=== PATIENT | female | born 1955 | race Caucasian/White ===

== ENCOUNTER 2017-05-08 08:44 | Outpatient (CLI) | payer OTHER ==
--- NOTE | 2017-05-15 14:40 | MMO ---
BILATERAL SCREENING MAMMOGRAMS: Date: 05/08/17 Comparison made to prior exams from 2007 and 2015. This patient's mammogram was interpreted with the assistance of computer-aided detection. FINDINGS: Scattered fibroglandular densities. Scattered benign calcifications. No mass or distortion. No suspic ious finding or interval change. Recommend one year follow-up. IMPRESSION: BIRADS 2: Benign Finding(s) POS: [facility]
== END 2017-05-08 08:45 | disposition home or self-care (01) ==
LOC: SCSMAMMO 08:44
PROVIDERS: ATTEND Family Medicine
DX: Z12.31 Encounter for screening mammogram for malignant neoplasm of breast (principal)
CPT/HCPCS: 77067

== ENCOUNTER 2017-07-02 07:25 | Outpatient (CLI) | payer OTHER | END 2017-07-02 07:26 | disposition home or self-care (01) | LOC: BICULT 07:25 | PROVIDERS: ATTEND Family Medicine | DX: R10.11 Right upper quadrant pain (principal); Z90.49 Acquired absence of other specified parts of digestive tract | CPT/HCPCS: 76700 ==

== ENCOUNTER 2017-11-23 09:17 | Outpatient (CLI) | payer OTHER | END 2017-11-23 09:18 | disposition home or self-care (01) | LOC: BICRAD 09:17 | PROVIDERS: ATTEND Internal Medicine Rheumatology | DX: M13.0 Polyarthritis, unspecified (principal); G56.02 Carpal tunnel syndrome, left upper limb; R53.81 Other malaise; R53.83 Other fatigue; M19.012 Primary osteoarthritis, left shoulder; M25.774 Osteophyte, right foot; Z72.0 Tobacco use | CPT/HCPCS: 71046; 72040 ==

== ENCOUNTER 2018-02-26 20:05 | Emergency (ER) | payer OTHER ==
--- NOTE | 2018-02-26 20:58 | RAD ---
PORTABLE CHEST 02/26/18 PROVIDED CLINICAL HISTORY: Cough. FINDINGS: Comparison 11/23/17. The cardiac and mediastinal silhouette is within normal limits. No focal consolidation, pleural fluid , or pneumothorax apparent. IMPRESSION: No evidence for an acute cardiopulmonary process. POS: [facility]
[2018-02-26] MEDS ORDERED: Azithromycin 250 MG TAB ONE (22:00)
== END 2018-02-26 22:10 | disposition home or self-care (01) ==
LOC: ERS 20:05
DX: J44.0 Chronic obstructive pulmonary disease with (acute) lower respiratory infection (principal); J44.1 Chronic obstructive pulmonary disease with (acute) exacerbation; E78.5 Hyperlipidemia, unspecified; I10 Essential (primary) hypertension; F17.210 Nicotine dependence, cigarettes, uncomplicated
CPT/HCPCS: 71045; 94640; J7620

== ENCOUNTER 2023-02-07 21:04 | Emergency (ER) | payer MEDICARE, OTHER ==
[2023-02-07] MEDS ORDERED: Ipratropium/Albuterol 3 ML NEB ONE (21:13)
[2023-02-07] MEDS ORDERED: methylPREDNISolone Sod Succ/PF 125 MG/2 ML VIAL ONE (21:22)
[2023-02-07 21:41] LABS: #Monocytes 0.6 thou/uL (0.11-0.59); #Neutrophils 5.1 thou/uL (1.40-6.50); %Basophils 0.2 % (0.0-1.0); %Eosinophils 0.1 % (0.0-10.0); %Lymphocytes 28.4 % (21.0-51.0); %Monocytes 7.8 % (0.0-10.0); %Neutrophils 63.1 % (42.0-75.0); Hematocrit 43.1 % (36.0-47.0); Hemoglobin 14.9 g/dL (12.0-16.0); Mean Corpuscular HGB CONC 34.6 g/dL (32.0-36.0); Mean Corpuscular Hemoglobin 34.1 pg (27.0-31.0); Mean Corpuscular Volume 98.6 fl (78.0-98.0); Mean Platelet Volume 9.4 fL (7.4-10.4); Platelet Count 197 10x3/uL (130-400); RBC Distribution Width 12.1 % (11.5-14.5); Red Blood Cell (RBC) Count 4.37 mill/uL (4.20-5.40); White Blood Cell (WBC) Count 8.1 10x3/uL (4.8-10.8)
[2023-02-07] MEDS ORDERED: Magnesium 2 GM/50 ML BAG (IN WATER) ONE (22:01)
[2023-02-07 22:03] LABS: ALT (SGPT) 18 U/L (8-55); AST (SGOT) 20 U/L (5-34); Albumin 4.6 g/dL (3.4-4.8); Alkaline Phosphatase 52 U/L (40-110); Anion Gap 18 mmol/L (10-20); BUN (Urea Nitrogen) 12 mg/dL (9.8-20.1); Bilirubin, Total 0.3 mg/dL (0.2-1.2); Calc. Creatinine Clearance 0 mL/min (70-130); Carbon Dioxide 20 mmol/L (23-31); Chloride 109 mmol/L (98-107); Estimated GFR 76; Globulin 2.7 g/dL (2.4-3.5); Glucose 99 mg/dL (80-115); Potassium 3.9 mmol/L (3.5-5.1); Protein, Total 7.3 g/dL (5.8-8.1); Sodium 143 mmol/L (136-145)
[2023-02-07] MEDS ORDERED: Ipratropium Bromide 2.5 ml Neb ONE (22:06)
[2023-02-07 22:07] LABS: Troponin I Less than 0.010 ng/mL (< 0.028)
[2023-02-07] MEDS ORDERED: Albuterol 2.5 MG (3 mL) NEB ONE (22:07)
[2023-02-07 23:17] LABS: BHCG - Serum Negative (NEGATIVE); Pregs Control Background? CLEAR/WHITE (CLR/WHITE); Pregs Control Bar Appear? YES (CONTROL BAR)
[2023-02-07 23:21] LABS: INR-International Normal Ratio 0.9; PTT 24.3 sec (22.9-36.1); Prothrombin Time 12.2 sec (12.0-14.7)
[2023-02-07 23:22] LABS: Lipase 30 U/L (8-78)
== END 2023-02-08 00:42 | disposition home or self-care (01) ==
LOC: ERS 21:04
DX: J44.1 Chronic obstructive pulmonary disease with (acute) exacerbation (principal); I10 Essential (primary) hypertension; F17.210 Nicotine dependence, cigarettes, uncomplicated; Z79.899 Other long term (current) drug therapy
CPT/HCPCS: 71045; 80053; 83690; 83735; 84484; 84703; 85025; 85610; 85730; 93005; 96365; 96375; J2930; J3475; J7611; J7620

== ENCOUNTER 2023-08-15 10:36 | Emergency (ER) | payer MEDICARE, OTHER ==
[2023-08-15] MEDS ORDERED: Ibuprofen 800 MG TAB ONE (13:03)
== END 2023-08-15 13:41 | disposition home or self-care (01) ==
LOC: ERS 10:36
DX: S20.212A Contusion of left front wall of thorax, initial encounter (principal); R91.1 Solitary pulmonary nodule; I10 Essential (primary) hypertension; J44.9 Chronic obstructive pulmonary disease, unspecified; F17.210 Nicotine dependence, cigarettes, uncomplicated; M06.9 Rheumatoid arthritis, unspecified; X50.0XXA Overexertion from strenuous movement or load, initial encounter; Y93.E9 Activity, other interior property and clothing maintenance; Y92.008 Other place in unspecified non-institutional (private) residence as the place of occurrence of the external cause